=== PATIENT | female | born 1960 | race Hispanic/Latino ===

== ENCOUNTER 2021-03-21 18:56 | Emergency (ER) | payer BC ==
[~2021-03-21] VITALS: Ht 157.5 cm; Wt 72.6 kg
[2021-03-21] MEDS ORDERED: IBUPROFEN 600 MG TAB PO STA (19:35)
== END 2021-03-21 22:00 | disposition home or self-care (01) ==
LOC: FSED 19:37
DX: M79.671 Pain in right foot (principal); S93.601A Unspecified sprain of right foot, initial encounter; W22.8XXA Striking against or struck by other objects, initial encounter; Y93.01 Activity, walking, marching and hiking; Y92.008 Other place in unspecified non-institutional (private) residence as the place of occurrence of the external cause; I10 Essential (primary) hypertension; E78.5 Hyperlipidemia, unspecified
CPT/HCPCS: 99283